=== PATIENT | female | born 1970 | race Caucasian/White ===

== ENCOUNTER 2021-07-26 14:38 | Observation (INO) ==
[2021-07-26] MEDS ORDERED: Isovue-370 500 ML BOTTLE IVP ONE (15:08)
[2021-07-26] MEDS ORDERED: Metoclopramide 10 MG/2 ML VIAL IVP ONE (15:10)
[2021-07-26] MEDS ORDERED: 0.9 % Sodium Chloride 1,000 ML IV ONE (15:10)
[2021-07-26 15:20] LABS: Basophils % 0.2 %; Eosinophils # 0.1 K/mcL (0.0-0.6); Eosinophils % 0.4 %; Hematocrit 39.5 % (35.3-44.9); Hemoglobin 13.8 g/dL (11.5-15.4); Immature Granulocytes % 0.6 % (0-4); Lymphocytes # 1.3 K/mcL (0.6-4.6); Lymphocytes % 9.3 %; Mean Corpuscular HGB Conc 34.9 g/dL (31.6-35.5); Mean Corpuscular Hemoglobin 30.3 pg (28.0-33.3); Mean Corpuscular Volume 86.6 fL (83.0-100.0); Mean Platelet Volume 8.9 fL (9.4-12.4); Monocytes # 0.8 K/mcL (0.0-1.3); Monocytes % 5.3 %; Neutrophils # 12.2 K/mcL (1.6-8.9); Platelet Count 351 K/mcL (140-400); Red Blood Count 4.56 M/mcL (3.82-4.97); Red Cell Distribution Width 12.1 % (11.5-14.5); Segmented Neutrophils % 84.2 %; White Blood Count 14.5 K/mcL (4.3-11.1)
[2021-07-26 15:28] LABS: Prothrombin Time 11.3 Seconds (9.4-12.1)
[2021-07-26 15:30] LABS: Activated Partial Thrombo Time 33.8 Seconds (26.0-36.0)
[2021-07-26 15:43] LABS: Alanine Aminotransferase 17 Units/L (7-52); Albumin 3.9 g/dL (3.5-5.7); Albumin/Globulin Ratio 1.4 (1.1-2.2); Alkaline Phosphatase 124 Units/L (34-104); Aspartate Amino Transferase 13 Units/L (13-39); BUN/Creatinine Ratio 10 (6-26); Bilirubin,Direct 0.1 mg/dL (0.0-0.2); Bilirubin,Indirect 0.3 mg/dL (0.0-1.0); Bilirubin,Total 0.4 mg/dL (0.3-1.0); Blood Urea Nitrogen 6 mg/dL (6-20); Calcium 8.4 mg/dL (8.6-10.3); Carbon Dioxide 22 mEq/L (23-29); Chloride 92 mEq/L (98-107); Globulin 2.7 g/dL (2.4-3.5); Glucose 140 mg/dL (70-105); Lipase 7 Units/L (11-82); Osmolality,Calculated 252 (280-300); Sodium 121 mEq/L (136-145); Total Protein 6.6 g/dL (6.4-8.9); Troponin I < 0.03 ng/mL (< 0.04); eGFR For African Americans > 60 (> 60); eGFR For Non-African Americans > 60 (> 60)
[2021-07-26 17:05] LABS: Bilirubin,Urine Negative (Negative); Blood,Urine Negative (Negative); Clarity,Urine Clear (Clear); Color,Urine Light-Yellow (Yellow); Glucose,Urine (UA) Normal (Normal); Ketones,Urine Negative (Negative); Leukocyte Esterase,Urine Negative (Negative); Nitrite,Urine Negative (Negative); Protein,Urine Negative (Neg-Trace); Specific Gravity,Urine 1.019 (1.010-1.025); Urobilinogen,Urine Normal (Normal)
[2021-07-26] MEDS ORDERED: Naloxone 0.4 MG/ML INJ IVP PRN (17:41)
[2021-07-26] MEDS ORDERED: Ondansetron 4 MG/2 ML VIAL IVP PRN (17:41)
[2021-07-26 17:44] LABS: Influenza A PCR Negative (Negative); Influenza B PCR Negative (Negative); Resp. Syncytial Virus PCR Negative (Negative)
[2021-07-26 17:46] LABS: SARS-CoV-2 by PCR (In House) Negative (Negative)
[2021-07-26] MEDS ORDERED: methylPREDNISolone 125 MG/2 ML VIAL IVP ONE (18:36)
[2021-07-26] MEDS ORDERED: Ipratropium/Albuterol Neb 3 ML IH PRN (18:38)
[2021-07-26] MEDS ORDERED: levoFLOXacin 750 MG/150 ML 750 MG/150 ML BAG IVPB SCH (18:45)
[2021-07-26 19:51] LABS: Adenovirus Not Detected (Not Detect); Bordetella Pertussis Not Detected (Not Detect); Chlamydophila pneumoniae Not Detected (Not Detect); Coronavirus 229E Not Detected (Not Detect); Coronavirus HKU1 Not Detected (Not Detect); Coronavirus NL63 Not Detected (Not Detect); Coronavirus OC43 Not Detected (Not Detect); Human Metapneumovirus Not Detected (Not Detect); Human Rhinovirus/Enterovirus Not Detected (Not Detect); Influenza A Subtype 2009 H1 Not Detected (Not Detect); Influenza B Not Detected (Not Detect); Mycoplasma pneumoniae Not Detected (Not Detect); Parainfluenza Virus 1 Not Detected (Not Detect); Parainfluenza Virus 2 Not Detected (Not Detect); Parainfluenza Virus 3 Not Detected (Not Detect); Parainfluenza Virus 4 Not Detected (Not Detect); Respiratory Syncytial Virus Not Detected (Not Detect); SARS-CoV-2 Not Detected (Not Detect)
[2021-07-26] MEDS ORDERED: Nicotine 21 MG PATCH.TD24 TD SCH (22:30)
[2021-07-26 22:34] VITALS: BP 119/75; PULSE 73; TEMP 98; O2SAT 95
[2021-07-27] MEDS ORDERED: *HR* Enoxaparin 40 MG/0.4 ML SYRINGE SQ SCH (07:00)
[2021-07-27] MEDS ORDERED: predniSONE 20 MG TABLET PO SCH (09:00)
== END 2021-07-27 01:18 | disposition left against medical advice (07) ==
LOC: 3BNU 14:38 → EMEROOARM 14:38 → SUATTDRO 17:52 → 3BNU 18:28
PROVIDERS: ADMIT Internal Medicine; ATTEND Pharmacist